=== PATIENT | male | born 1930 | race Caucasian/White ===

== ENCOUNTER → 2017-04-30 | Outpatient (CLI) | payer OTHER, MEDICARE | LOC: GIMAGING 14:23 | PROVIDERS: ATTEND Family Medicine | DX: K59.00 Constipation, unspecified (principal); N20.0 Calculus of kidney; Z96.642 Presence of left artificial hip joint | CPT/HCPCS: 74000-PO ==

== ENCOUNTER 2017-05-03 11:38 | Inpatient (IN) | payer OTHER, MEDICARE ==
--- NOTE | 2017-05-03 13:09 | EDPHY ---
H & P Time Seen by Provider: 05/03/17 12:23 HPI/ROS: Chief complaint. Blood in urine HPI. Patient is an 87-year-old male with indwelling catheter that has been present for 3 years. It is changed monthly. This morning however he noticed that there was some blood in the catheter tubing. He has no abdominal pain. No fever. No nausea vomiting or diarrhea. He notes that the catheter otherwise seems to be working normally but just present with some blood. No other complaints ROS Constitutional. no fever/chills, no weakness Eyes. no problems with vision ENT. no sore throat, no nasal drainage Cardiovascular. no chest pain Respiratory. no shortness of breath, no cough Abdominal. no abdominal pain, no nausea/vomiting, no diarrhea . Chronic Soares catheter with blood in the tubing this morning MS. no calf pain/swelling, no neck/back pain, no joint pain Skin. no rash Lymph. no swollen glands Neuro. no headache, no dizziness, no difficulty walking or with speech Past Medical/Surgical History: Past medical history hypertension, prostate cancer, suprapubic catheter, hip replacement Social History: Single, nonsmoker, no alcohol Smoking Status: Never smoked Physical Exam: General Appearance: Alert pleasant well-developed male mild distress vital signs are stable Eyes: Pupils equal and round no pallor or injection. ENT, Mouth: Mucous membranes are moist. Respiratory: There are no retractions, lungs are clear to auscultation. Cardiovascular: Regular rate and rhythm. Gastrointestinal: Abdomen is soft and nontender, no masses, bowel sounds normal. Suprapubic catheter in place. There is some cloudy urine that is slightly blood tinged in the catheter tubing Neurological: Awake and alert, sensory and motor exams grossly normal. Skin: Warm and dry, no rashes. Musculoskeletal: Neck is supple nontender. Extremities symmetrical, full range of motion. Psychiatric: Patient is oriented X 3, there is no agitation. Constitutional: Initial Vital Signs Temperature (C) 37 C 05/03/17 11:52 Heart Rate 85 05/03/17 11:52 Respiratory Rate 16 05/03/17 11:52 Blood Pressure 140/74 H 05/03/17 11:52 O2 Sat (%) 94 05/03/17 11:52 O2 Delivery Mode Room Air Allergies/Adverse Reactions: No Known Allergies Allergy (Verified 05/22/12 12:54) Home Medications: Medication Instructions Recorded Cholecalciferol Vit D3 [Vitamin D3 1,000 units PO DAILY 05/23/16 (*)] Lisinopril [Zestril 40 mg (*)] 40 mg PO DAILY 05/23/16 oxyCODONE HCL [Roxicodone] 15 mg PO Q8 05/23/16 Acetaminophen [Tylenol 325mg (*)] 650 mg PO Q4HRS PRN #0 tab 05/27/16 Cephalexin [Keflex (*)] 250 mg PO BID #8 cap 05/27/16 Bicalutamide 05/03/17 Medical Decision Making Procedures: Catheter is irrigated--any clots are removed. The catheter is flowing however appears to be pure blood. Apparently there was some which blood in the urine sample that they were unable to perform urinalysis but were able to perform microscopic analysis ED Course/Re-evaluation: Urinalysis shows white blood cells as well as RBCs. It is sent For culture and sensitivity. [id number] mg orally in the department Re-evaluation 14 50--patient has no pain however catheter now appears that it may not be running completely and urine in the bag is blood appearing Patient and I discussed treatment plan including recommendation for admission and further evaluation. He expresses understanding and agreement Urology consult is called and I discussed patient's condition with Dr. Del Valle IV normal saline. Antibiotics were held at this point pending culture as the patient has no systemic symptoms for UTI I consulted and discussed the case with Dr. heck, hospitalist, who will see the patient in the emergency department Differential Diagnosis: Hematuria with clots that are interfering with drainage of the suprapubic catheter. The etiology of the hematuria is not clear but includes infection as well as tumor. Patient needs cystoscopy and Urology consult to help with further evaluation and care - Data Points Laboratory Results: 05/03/17 14:10 Urine Color RED Urine Appearance TURBID Urine pH TNP Ur Specific [place] REJ Urine Protein TNP Urine Ketones TNP Urine Blood TNP Urine Nitrate TNP Urine Bilirubin TNP Urine Urobilinogen TNP Ur Leukocyte Esterase TNP Urine RBC >182 /hpf H /hpf (0-3) Urine WBC 25-50 /hpf H /hpf (0-3) Ur Epithelial Cells NONE SEEN /lpf /lpf (NONE-1+) Urine Bacteria 1+ /hpf H /hpf (NONE SEEN) Urine Glucose TNP Departure - Departure Disposition: [facility] Acute Clinical Impression: Hematuria Qualifiers: Hematuria type: gross Qualified Code(s): R31.0 - Gross hematuria Condition: Fair Referrals: Tea Carrillo MD [Primary Care Provider] - As per Instructions
[2017-05-03 14:35] LABS: COLOR RED
[2017-05-03 14:41] LABS: BACTERIA 1+ /hpf (NONE SEEN); RBC,URINE >182 /hpf (0-3); WBC,URINE 25-50 /hpf (0-3)
[2017-05-03] MEDS ORDERED: CEPHALEXIN 500MG PREPACK#4 BTL TAKEHOME ONE (14:46)
[2017-05-03 15:36] LABS: % IMMATURE GRANULYOCYTES 0.2 % (0.0-1.1); ABSOLUTE IMMATURE GRANULOCYTES 0.02 10^3/uL (0.00-0.10); ADD DIFF? NO; ADD MORPH? NO; ADD SCAN? NO; ATYPICAL LYMPHOCYTE FLAG 0 (0-99); FRAGMENT RBC FLAG 0 (0-99); HEMATOCRIT 32.5 % (40.0-51.0); HEMOGLOBIN 10.3 g/dL (13.7-17.5); LEFT SHIFT FLG 0 (0-99); LIPEMIA HEMOLYSIS FLAG 80 (0-99); MEAN CELL HEMOGLOBIN 31.3 pg (27.9-34.1); MEAN CELL HEMOGLOBIN CONCENTR. 31.7 g/dL (32.4-36.7); MEAN CELL VOLUME 98.8 fL (81.5-99.8); MEAN PLATELET VOLUME 9.3 fL (8.7-11.7); PLATELET CLUMPS FLAG 0 (0-99); PLATELET COUNT 188 10^3/uL (150-400); RED BLOOD CELL COUNT 3.29 10^6/uL (4.40-6.38); RED CELL DISTRIBUTION WIDTH 15.3 % (11.5-15.2)
[2017-05-03 15:49] LABS: INR 1.06 (0.83-1.16); PROTIME(PATIENT) 13.7 SEC (12.0-15.0)
[2017-05-03] MEDS ORDERED: ONDANSETRON 4 MG/2 ML VIAL IVP PRN (15:49)
[2017-05-03] MEDS ORDERED: ACETAMINOPHEN 325 MG TAB PO PRN (15:49)
[2017-05-03] MEDS ORDERED: ONDANSETRON DISINTEGRATING 4 MG TAB PO PRN (15:49)
[2017-05-03 15:50] LABS: APTT 30.5 SEC (23.0-38.0)
--- NOTE | 2017-05-03 15:55 | ASMTCMCOM ---
CM Note CM Note Notes: Patient admitted for hematuria and further urology workup and consult. Patient has had a suprapubic catheter for 3 years and this morning there was blood in the catheter tubing. Patient states his catheter gets changed monthly. Patient has a history of prostate cancer. Patient lives with his Julia and has used [facility] in the past. Armin'ts PCP is Dr. Tea Carrillo. Exact DC needs unknown at this time, CM to follow. Date Signed: 05/03/2017 03:54 PM Electronically Signed By:Zainab Stack RN
[2017-05-03 16:04] LABS: ANION GAP 15 mEq/L (8-16); CALCIUM 9.1 mg/dL (8.5-10.4); CARBON DIOXIDE 24 mEq/l (22-31); CHLORIDE 101 mEq/L (97-110); CREATININE 2.4 mg/dL (0.7-1.3); GLOMERULAR FILTRATION RATE 26; GLUCOSE 133 mg/dL (70-100); POTASSIUM 4.9 mEq/L (3.5-5.2); SODIUM 140 mEq/L (134-144)
--- NOTE | 2017-05-03 17:02 | GHP ---
[f rep st] HISTORY AND PHYSICAL DATE OF ADMISSION: 05/03/2017 CHIEF COMPLAINT: Hematuria. HISTORY OF PRESENT ILLNESS: The patient is an 87-year-old male with a history of prostate cancer, who is status post prostatectomy, and has an indwelling suprapubic catheter placed over 2 years ago, presents to the Emergency Department with dimitry blood draining from his catheter. He denies any fevers or chills. He does complain of some suprapubic discomfort. This has been somewhat chronic, and he takes oxycodone 5 mg 4 times a day for pain control. He otherwise has no chest pain, shortness of breath, nausea, or vomiting. He is here with his . They first noticed the hematuria last night. Today, he had dimitry blood in his catheter bag and was brought to the Emergency Department. In the ER, he underwent irrigation of the bladder, and multiple clots were removed. He is admitted to the hospital for further management. He is followed by Dr. Harman Hoffman, Urology. PAST MEDICAL HISTORY: 1. Prostate cancer, status post prostatectomy. 2. Presence of a suprapubic catheter. 3. Chronic kidney disease with baseline creatinine 1.7-2.2. 4. Hypertension. 5. History of pulmonary embolism in a postoperative state. 6. Essential tremor. 7. Chronic pain with chronic continuous opioid dependence. 8. History of knee replacement. 9. Total left hip replacement in 2011. 10. Cataract surgery. 11. Achilles tendon surgery. 12. Hernia surgery. 13. Vasectomy. MEDICATIONS: Please see [employer] for complete updated outpatient medication list. ALLERGIES: No known drug allergies. SOCIAL HISTORY: The patient lives at home independently with his . He uses a walker to ambulate. He denies a history of tobacco, alcohol or drug use. His is present at the bedside. FAMILY HISTORY: Reviewed and not pertinent. REVIEW OF SYSTEMS: A 10-point review of systems was performed and is negative status or as per HPI. OBJECTIVE: VITAL SIGNS: Temperature is 37 degrees, blood pressure 149/80, heart rate 74, respiratory rate 16, he is 93% on room air. GENERAL: The patient is awake, alert, and oriented, no acute distress HEENT: Head is atraumatic, normocephalic. Pupils equal, round, and reactive to light. Extraocular motions intact. Oropharynx clear. Mucous membranes are moist. NECK: Supple. There is no JVD. HEART: Regular rate and rhythm without murmur. LUNGS: Clear to auscultation bilaterally. ABDOMEN: Soft, nondistended. : He has mild suprapubic tenderness to palpation. His suprapubic catheter site is without drainage. There is dimitry hematuria in his catheter tubing and bag. EXTREMITIES: Without cyanosis, clubbing, or edema. NEUROLOGIC: Grossly nonfocal. LABORATORY DATA: CBC shows a normal white blood cell count, hemoglobin 10.3 which is stable from previous labs. Basic metabolic panel shows normal electrolytes, BUN 45, creatinine 2.4, glucose 133. Urinalysis has greater than 182 red cells, 25-50 white cells, 1+ bacteria on microscopy. Urine culture is pending. ASSESSMENT AND PLAN: The patient is an 87-year-old male with a history of prostate cancer, status post prostatectomy, and presence of a suprapubic catheter, who is admitted to the hospital with dimitry hematuria. 1. Hematuria. This is new onset. He is admitted to medical surgical unit. Continuous bladder irrigation is planned. I consulted Dr. Del Valle from Urology who will see the patient and consider cystoscopy. Check renal ultrasound. He may have a UTI. I reviewed his prior culture data, which have grown E. coli and Pseudomonas sensitive to cefepime. I will treat him with cefepime for now while we await urine culture results. There is no evidence of sepsis. He is afebrile. Will await further recommendations from Urology. Will also trend his hemoglobin q.6 hours and transfuse if indicated. 2. Acute kidney injury in the setting of chronic kidney disease. His baseline creatinine is 1.7-2.2. His creatinine on arrival is slightly elevated at 2.4. I will gently hydrate him overnight with normal saline, renally dose his medications, and avoid nephrotoxic agents. As above, renal ultrasound is ordered. 3. History of prostate cancer, status post suprapubic catheter. He is followed by Dr. Harman Hoffman, urologist. We will continue his bicalutamide. 4. History of hypertension. His blood pressures are just mildly elevated. We will continue to monitor these. He is not currently on any antihypertensive. 5. Deep vein thrombosis prophylaxis. We will defer pharmacologic prophylaxis given his gross hematuria. We will place SCDs for now. 6. Disposition. The patient is admitted to inpatient status. I suspect he will require greater than 48 hours hospitalization for ongoing management of his hematuria and further urologic workup. PT, OT evaluations are requested. /[id number]/MODL MTDD
[2017-05-03] MEDS: CEFEPIME HCL 1 GM in D5W 50 ML IV SCH (18:30)
[2017-05-03] MEDS: NS 1,000 ML IV SCH (18:31)
[2017-05-03 18:52] LABS: HEMATOCRIT 30.9 % (40.0-51.0); HEMOGLOBIN 9.9 g/dL (13.7-17.5)
[2017-05-04] MEDS: oxyCODONE IR 5 MG TAB PO PRN ×4 (00:17→18:15)
[2017-05-04 05:10] LABS: HEMATOCRIT 27.8 % (40.0-51.0); HEMOGLOBIN 9.2 g/dL (13.7-17.5)
[2017-05-04 05:25] LABS: ANION GAP 12 mEq/L (8-16); CALCIUM 8.7 mg/dL (8.5-10.4); CARBON DIOXIDE 23 mEq/l (22-31); CHLORIDE 106 mEq/L (97-110); CREATININE 2.4 mg/dL (0.7-1.3); GLOMERULAR FILTRATION RATE 26; GLUCOSE 101 mg/dL (70-100); POTASSIUM 4.8 mEq/L (3.5-5.2); SODIUM 141 mEq/L (134-144)
[2017-05-04] MEDS: CEFEPIME HCL 1 GM in D5W 50 ML IV SCH (09:12)
[2017-05-04] MEDS: NS 1,000 ML IV SCH ×2 (09:14→19:55)
--- NOTE | 2017-05-04 10:47 | HOSPPROG ---
Hospitalist Progress Note Assessment/Plan: patient is an 87-year-old male with a history of prostate cancer. He is status post a prostatectomy and has an indwelling suprapubic catheter in place for over 2 years ago. He presented the emergency department dimitry blood draining from his catheter. Today is my 1st encounter with the patient. Chart reviewed. * Gross hematuria urology to see and consider a cystoscopy he is getting continue bladder irrigation with clear urine noted * acute kidney injury in the setting of chronic kidney disease creatinine is 2.4, his baseline is around 1.7-2.2 renal ultrasound shows prominent bilateral hydronephrosis this is likely causing his acute kidney injury *anemia will follow * possible urinary tract infection started on cefepime * history of prostate cancer status post suprapubic catheter on bicalutamide * hypertension * DVT prophylaxis. This is being held due to gross hematuria * plan. Call and update his family. Patient is anxious to go home but I am concerned about his elevated creatinine and bilateral hydronephrosis. Will await further input from Urology Subjective: Maurilio has no complaints/wants to go home. Objective: Vital Signs Temp Pulse Resp BP Pulse Ox 36.4 C 66 17 138/74 H 93 05/04/17 08:00 05/04/17 08:00 05/04/17 08:00 05/04/17 08:00 05/04/17 08:00 Laboratory Results 05/04/17 05:00 05/04/17 05:00 05/03/17 05/04/17 05/05/17 05:59 05:59 05:59 Intake Total 911 Output Total 680 1100 Balance 231 -1100 PT 13.7 SEC (12.0-15.0) 05/03/17 15:27 INR 1.06 (0.83-1.16) 05/03/17 15:27 - Physical Exam Constitutional: no apparent distress, appears nourished, not in pain Eyes: PERRL Ears, Nose, Mouth, Throat: hard of hearing Cardiovascular: regular rate and rhythym Respiratory: no respiratory distress Skin: warm Neurologic: AAOx3 Psychiatric: interacting appropriately ICD10 Worksheet Patient Problems: Problems Problem Status Onset Hematuria Acute Total replacement of hip Active Hip dislocation, left Acute Renal insufficiency Acute UTI (urinary tract infection) Acute
[2017-05-04] MEDS: BICALUTAMIDE 50 MG TAB PO SCH (12:11)
[2017-05-04 12:28] LABS: HEMOGLOBIN 9.5 g/dL (13.7-17.5)
--- NOTE | 2017-05-04 13:30 | GCON ---
[f rep st] CONSULTATION DATE OF CONSULTATION: 05/04/2017 CHIEF COMPLAINT: Hematuria and renal insufficiency. Creatinine is currently 2.4. His baseline 2 ye ars ago was 2.0. HISTORY OF PRESENT ILLNESS: An 87-year-old male with a history of prostate cancer, who is status pos t prostatectomy and recurrence. He is failing Casodex currently, indwelling suprapubic catheter was placed over 2 years ago, is changed monthly. He presented on the to the emergency room with fra nk blood draining from his catheter. Over the last 18 hours, his catheter is cleared very nicely on continuous bladder irrigation and with antibiotics, as he has had significant UTIs in the past includ ing E coli and Pseudomonas sensitive to the cefepime. He is tolerating cefepime well currently. The hematuria was rapid onset and this has not happened to him before. The ER irrigated the bladder and multiple clots were removed, and he was admitted for further management. I did speak with Dr. Hoffman about his plan. Dr. Hoffman agrees and will follow the patient. PAST MEDICAL HISTORY: Prostate cancer status post prostatectomy presence of suprapubic catheter, chr onic kidney disease with baseline creatinine 1.7-2.4, hypertension, history of pulmonary embolism and postop state, essential tremor, chronic pain, knee replacement, left hip replacement, cataract surge ry, Achilles tendon surgery, hernia surgery, vasectomy. MEDICATIONS: See the medication record for specifics but he is on no chronic coagulants at home. ALLERGIES: No known drug allergies. SOCIAL HISTORY: He lives at home independently with his . His is power of burrito maker. He us es a walker to ambulate. Denies tobacco, alcohol or drug use. FAMILY HISTORY: Not pertinent and reviewed. REVIEW OF SYSTEMS: A 10-point review of systems was performed and the patient is negative except for the HPI. LAB DATA: His creatinine is 2.4 the rest of his BMP is normal. His CBC is reasonable. It was 10.3 hemoglobin on admission, it is now 9.5, which is likely due to the hydration and I am unconcerned abo ut current bleeding as his urine is completely clear on CBI. PHYSICAL EXAMINATION: VITAL SIGNS: Temperature is afebrile, blood pressures are 130s/70s-80s. Hear t rate is 70 today. Oxygen saturations 92%-93% on room air. GENERAL: Resting comfortably. No acut e distress. HEENT: Normocephalic, atraumatic. NECK: Supple. No lymphadenopathy. Trachea is midl ine. CHEST: No retractions or pursed lip breathing. No cyanosis. ABDOMEN: Soft, nontender, nondi stended. No masses. Suprapubic tube site is clean. Mild erythema which is normal. SP tube is drai amparo clear urine with CBI on low rate. MUSCULOSKELETAL: Moving all 4 extremities well. GENITOURINA RY: Genitals are normal. Prostate exam is deferred. PULSES: +1 pulses bilaterally in lower extrem ities. NEUROLOGIC: Cranial nerves 2-12 grossly intact. PSYCHIATRIC: Normal mood and affect. IMAGING: Renal ultrasound noted moderate hydronephrosis bilaterally, which is likely chronic and lik harper due to the recurrence of his prostate cancer. However I do not have a good diagnosis for the cau se of the hydronephrosis. ASSESSMENT/PLAN: 1. Discussed with Dr. Hoffman. He agrees with my plan of percutaneous nephrostomy tubes bilaterally a nd he will follow the patient from here. 2. I spoke with the daughter and the about the situation and after extensive discussion, they a gree to undergo percutaneous nephrostomy but they will be speaking with the patient about this and th e need for this procedure. 3. N.p.o. 4. Percutaneous nephrostomy tubes to be placed tomorrow by Interventional Radiology and this was ord ered. 5. We will speak to the Internal Medicine service here regarding the plan as well and Dr. Hoffman is t o assume his care from here. /[id number]/MOD
[2017-05-05] MEDS: oxyCODONE IR 5 MG TAB PO PRN (05:26)
[2017-05-05 05:32] LABS: % IMMATURE GRANULYOCYTES 0.5 % (0.0-1.1); ABSOLUTE IMMATURE GRANULOCYTES 0.03 10^3/uL (0.00-0.10); ADD DIFF? NO; ADD MORPH? NO; ADD SCAN? NO; ATYPICAL LYMPHOCYTE FLAG 20 (0-99); FRAGMENT RBC FLAG 20 (0-99); HEMATOCRIT 27.7 % (40.0-51.0); LEFT SHIFT FLG 10 (0-99); LIPEMIA HEMOLYSIS FLAG 80 (0-99); MEAN CELL HEMOGLOBIN 31.7 pg (27.9-34.1); MEAN CELL HEMOGLOBIN CONCENTR. 32.5 g/dL (32.4-36.7); MEAN CELL VOLUME 97.5 fL (81.5-99.8); MEAN PLATELET VOLUME 8.9 fL (8.7-11.7); PLATELET CLUMPS FLAG 0 (0-99); PLATELET COUNT 187 10^3/uL (150-400); RED BLOOD CELL COUNT 2.84 10^6/uL (4.40-6.38); RED CELL DISTRIBUTION WIDTH 15.2 % (11.5-15.2)
[2017-05-05 05:42] LABS: INR 1.17 (0.83-1.16); PROTIME(PATIENT) 14.9 SEC (12.0-15.0)
[2017-05-05 05:43] LABS: APTT 33.1 SEC (23.0-38.0)
[2017-05-05 05:44] LABS: ANION GAP 8 mEq/L (8-16); CALCIUM 8.6 mg/dL (8.5-10.4); CARBON DIOXIDE 22 mEq/l (22-31); CHLORIDE 109 mEq/L (97-110); CREATININE 2.3 mg/dL (0.7-1.3); GLOMERULAR FILTRATION RATE 27; GLUCOSE 99 mg/dL (70-100); POTASSIUM 4.9 mEq/L (3.5-5.2); SODIUM 139 mEq/L (134-144)
[2017-05-05] MEDS: NS 1,000 ML IV SCH (08:47)
[2017-05-05] MEDS: CEFEPIME HCL 1 GM in D5W 50 ML IV SCH (09:59)
--- NOTE | 2017-05-05 10:52 | HOSPPROG ---
Hospitalist Progress Note Assessment/Plan: patient is an 87-year-old male with a history of prostate cancer. He is status post a prostatectomy and has an indwelling suprapubic catheter in place for over 2 years ago. He presented the emergency department dimitry blood draining from his catheter. Reviewed his care yesterday with Dr Del Valle. * Gross hematuria resolved he is getting continue bladder irrigation with clear urine noted Dr Hoffman to see today * acute kidney injury in the setting of chronic kidney disease creatinine is 2.3, his baseline is around 1.7-2.2 renal ultrasound shows prominent bilateral hydronephrosis this is likely causing his acute kidney injury *bilateral hydronephrosis getting bilateral nephrostomy tube placement today *pruritus back area/ no rash will add topical Benadryl cream *anemia will follow * possible urinary tract infection started on cefepime * history of prostate cancer status post suprapubic catheter on bicalutamide * hypertension bp 139/75 * DVT prophylaxis. This is being held due to gross hematuria * plan. NPO for now.to get nephrostomy tubes today Subjective: Maurilio has no complaints/concerned about getting nephrostomy tubes placed. Objective: Vital Signs Temp Pulse Resp BP Pulse Ox 36.6 C 57 L 18 139/75 H 93 05/05/17 07:40 05/05/17 07:40 05/05/17 07:40 05/05/17 07:40 05/05/17 07:40 Laboratory Results 05/05/17 05:24 05/05/17 05:24 05/04/17 05/05/17 05/06/17 05:59 05:59 05:59 Intake Total 911 1092 Output Total 680 3900 Balance 231 -2808 PT 14.9 SEC (12.0-15.0) 05/05/17 05:24 INR 1.17 (0.83-1.16) H 05/05/17 05:24 - Physical Exam Constitutional: not in pain, chronically ill appearing Eyes: PERRL Ears, Nose, Mouth, Throat: hearing normal Cardiovascular: regular rate and rhythym Respiratory: no respiratory distress Skin: warm, other (redness along the left lower back area/ had been scratching skin/no rash noted) Musculoskeletal: full muscle strength Neurologic: AAOx3 Psychiatric: interacting appropriately ICD10 Worksheet Patient Problems: Problems Problem Status Onset Hematuria Acute Total replacement of hip Active Hip dislocation, left Acute Renal insufficiency Acute UTI (urinary tract infection) Acute
--- NOTE | 2017-05-05 11:40 | SOAPPROG ---
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 Based on the location of the obstruction, he may benefit from a CT pelvis to look for pelvic adenopathy related to his prostate cancer. I suspect that he may need to have Oncology evaluation for discussions regarding treatment of his prostate cancer. Subjective: Pt denies having any pain, fevers today. Objective: Vital Signs Temp Pulse Resp BP Pulse Ox 36.3 C 64 18 144/87 H 94 05/05/17 11:29 05/05/17 11:29 05/05/17 11:29 05/05/17 11:29 05/05/17 11:29 Laboratory Results 05/05/17 05:24 05/05/17 05:24 05/04/17 05/05/17 05/06/17 05:59 05:59 05:59 Intake Total 911 1092 Output Total 680 3900 Balance 231 -2808 PT 14.9 SEC (12.0-15.0) 05/05/17 05:24 INR 1.17 (0.83-1.16) H 05/05/17 05:24 Physical Exam - Physical Exam General Appearance: alert, no apparent distress Abdomen: normal bowel sounds, non-tender, soft Male Genitalia: other (Soares draining clear urine) ICD10 Worksheet Patient Problems: Problems Problem Status Onset Hematuria Acute Total replacement of hip Active Hip dislocation, left Acute Renal insufficiency Acute UTI (urinary tract infection) Acute
[2017-05-05] MEDS: BICALUTAMIDE 50 MG TAB PO SCH (12:44)
[2017-05-05] MEDS ORDERED: LIDOCAINE 1% 300 MG/30 ML SDV ONE (13:40)
[2017-05-05] MEDS ORDERED: IOPAMIDOL (ISOVUE-300) 100 ML BTL ONE (13:40)
[2017-05-05] MEDS ORDERED: FLUMAZENIL 0.5 MG/5 ML MDV IVP ONE (13:53)
[2017-05-05] MEDS ORDERED: MIDAZOLAM 2 MG/2 ML VIAL ONE (13:53)
[2017-05-05] MEDS ORDERED: fentaNYL 100 MCG/2 ML INJ ONE (13:53)
[2017-05-05] MEDS ORDERED: NALOXONE HCL 0.4 MG/ML INJ ONE (13:53)
[2017-05-05] MEDS ORDERED: DIPHENHYDRAMINE CREAM TP PRN (13:56)
--- NOTE | 2017-05-05 15:05 | POSTOPPROG ---
Post Op Note Date of Operation: 05/05/17 Surgeon: Frankie Arreola Anesthesia: IV Sedation Pre-op Diagnosis: Prostate CA Post-op Diagnosis: same Indication: Bilateral hydronephrosis, increasing serum creatinine Procedure: Bilateral percutaneous nephrostomies Findings: Tubes are in good positions. Cloudy urine on left. Inf/Abcess present in the surg proc area at time of surgery?: Yes Depth: Organ Space EBL: Minimal Complications: 0 Drains: Nephrostomy (Bilateral 10 F nephrostomy tubes) Specimen(s): 10 ml cloudy urine from left nephrostomy
[2017-05-06] MEDS: oxyCODONE IR 5 MG TAB PO PRN ×3 (03:04→22:49)
[2017-05-06] MEDS: CEFEPIME HCL 1 GM in D5W 50 ML IV SCH (08:42)
--- NOTE | 2017-05-06 10:15 | HOSPPROG ---
Hospitalist Progress Note Assessment/Plan: patient is an 87-year-old male with a history of prostate cancer. He is status post a prostatectomy and has an indwelling suprapubic catheter in place for over 2 years ago. He presented the emergency department with dimitry blood draining from his catheter. * Gross hematuria resolved he is getting continue bladder irrigation with clear urine noted care per Dr Hoffman * acute kidney injury in the setting of chronic kidney disease creatinine is 2.3, his baseline is around 1.7-2.2 renal ultrasound shows prominent bilateral hydronephrosis this is likely causing his acute kidney injury *bilateral hydronephrosis s/p bilateral nephrotomy tube placement *pruritus back area/ no rash will add topical Benadryl cream *chronic pain on continuous opioid dependence home meds resumed *anemia will follow/ no sig drop * urinary tract infection cefepime urine cx shows pseudomonas awaiting sensitivities/ hopefully, can go home on Levaquin * history of prostate cancer status post prostatectomy w chronic suprapubic catheter on bicalutamide will ask oncology to get involved with his care * hypertension bp 146/75 * DVT prophylaxis. will initiate due to hx of PE in 2016 * plan. will ask oncology to see, start hepain tid sq, repeat labs in a.m. / will ask PT and OT to see Subjective: Maurilio wants to be left alone and sleep. Objective: Vital Signs Temp Pulse Resp BP Pulse Ox 36.5 C 60 20 146/75 H 95 05/06/17 07:54 05/06/17 07:54 05/06/17 07:54 05/06/17 07:54 05/06/17 07:54 Microbiology 05/05/17 15:00 Gram Stain - Final Other - Other Laboratory Results 05/05/17 05:24 05/05/17 05:24 05/05/17 05/06/17 05/07/17 05:59 05:59 05:59 Intake Total 1092 150 Output Total 3900 5950 1650 Balance -2808 -5800 -1650 PT 14.9 SEC (12.0-15.0) 05/05/17 05:24 INR 1.17 (0.83-1.16) H 05/05/17 05:24 - Physical Exam Constitutional: not in pain, chronically ill appearing Eyes: PERRL Ears, Nose, Mouth, Throat: hearing normal Respiratory: no respiratory distress Genitourinary: other ([address]) Skin: warm Neurologic: AAOx3 Psychiatric: interacting appropriately ICD10 Worksheet Patient Problems: Problems Problem Status Onset Total replacement of hip Active Hip dislocation, left Acute UTI (urinary tract infection) Acute Renal insufficiency Acute Hematuria Acute
[2017-05-06] MEDS: HEPARIN 5,000 UNIT/0.5 ML SYR SC SCH ×3 (12:41→21:46)
[2017-05-06] MEDS: BICALUTAMIDE 50 MG TAB PO SCH (12:41)
--- NOTE | 2017-05-06 13:45 | ASMTCMCOM ---
CM Note CM Note Notes: CM met w/ and daughter for dispo planning. Pt was asleep. PT/OT are recommending SNF. initially pt was adamant about discharging home but is now more agreeable to SNF. [facility]st choice is [facility] and [facility]nd [facility]. CM faxed over referral to both facilities. CM to follow. Date Signed: 05/06/2017 01:44 PM Electronically Signed By:BEE Newton
[2017-05-06] MEDS: NS 1,000 ML IV SCH (21:46)
--- NOTE | 2017-05-06 23:51 | GCON ---
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 HISTORY OF PRESENT ILLNESS: The patient is a very pleasant 87-year-old male, referred by Dr. Hoffman for further evaluation and treatment recommendations regarding metastatic castrate resistant prostate cancer. Dr. Hoffman started seeing the patient years ago for renal stones. He had a bladder outlet obstruction in the fall of 2012 and underwent a TURP, which identified a Luis Alberto 10 prostate cancer involving 90% of the prostate gland. At that time, his PSA was 96. Imaging at that time included a bone scan which was suspicious for a metastases in the left ischial tuberosity, and otherwise no obvious metastatic bone disease. Abdominal CT scan did not identify any pelvic adenopathy or liver metastasis. The patient was then started on Lupron and Casodex with a rapid drop in his PSA. He has been maintained on anti-androgen therapy since that time. The lowest PSA was in January of 2014 of 2.74. In the summer it was 7.8. On October of this year 16.9, and in February of this year 23.9. He was felt to clinically likely have progressive metastatic prostate cancer. He has had a suprapubic catheter ever since the TURP, with chronic renal insufficiency with baseline creatinines ranging from around 1.7 to 1.8. More recently, the patient was admitted after having episode of gross hematuria. He also noted some suprapubic discomfort. He denied any fevers or chills. The hematuria rapidly cleared with bladder irrigation. Renal ultrasound identified prominent bilateral hydronephrosis, and the patient had bilateral nephrostomy tubes placed. Also of note, urine culture is growing Pseudomonas. Currently, the patient is resting. He notes some discomfort at the nephrostomy sites. He is somewhat sleepy. PAST MEDICAL HISTORY: 1. Metastatic prostate cancer. 2. Chronic suprapubic catheter. 3. Chronic renal insufficiency. 4. Hypertension. 5. History of pulmonary emboli. 6. Opioid dependence due to chronic pain. PAST SURGICAL HISTORY: Knee replacement, hip replacement, cataract surgery, hernia, vasectomy, TURP. ALLERGIES: None known. SOCIAL HISTORY: The patient lives with his . He uses a walker. He denies any tobacco or alcohol use. FAMILY HISTORY: Noncontributory. REVIEW OF SYSTEMS: 10-point review of systems is negative other than HPI. PHYSICAL EXAM: GENERAL: He is a very elderly, somewhat sleepy male, who is lying comfortably in bed. VITAL SIGNS: Blood pressure 115/65, heart rate 59, O2 sat 94% on room air. HEENT: Pupils are equal, oropharynx is clear. NECK: Supple. HEART: Regular rate. LUNGS: Clear to auscultation. ABDOMEN: Soft, and nontender. ABDOMEN: Soft and nontender. He does have a suprapubic catheter. BACK: He has bilateral nephrostomies. LABORATORY DATA: White blood cell count 6.5, hematocrit 27.7, platelets 187. Creatinine 2.3. IMPRESSION: This is an 87-year-old male with castrate resistant metastatic prostate cancer. This was identified incidentally on a transurethral resection of prostate, and was found to be a Luis Alberto 10. Bone scan 4 years ago identified a single bony metastases, and CT scan at that time did not identify any pelvic adenopathy. The hematuria has resolved and presumably most likely related to the pseudomonal urinary tract infection. He does have a history of renal stones, but that seems less likely. I think he should have a pelvic CT at some point to try to better define the etiology of the new bilateral hydro. This could be due to progressive pelvic adenopathy. Hopefully, the stents can be internalized at some point. Will need to review treatment options once the patient is more clinically stable and we have a better sense of his performance status. With that said, treatment could be very challenging given the patient's comorbidities and his advanced age. We will continue to follow along with you. /[id number]/MODL MTDD
[2017-05-07] MEDS: HEPARIN 5,000 UNIT/0.5 ML SYR SC SCH ×3 (05:11→22:48)
[2017-05-07 05:34] LABS: % IMMATURE GRANULYOCYTES 0.4 % (0.0-1.1); ABSOLUTE IMMATURE GRANULOCYTES 0.02 10^3/uL (0.00-0.10); ADD DIFF? NO; ADD MORPH? NO; ADD SCAN? NO; ATYPICAL LYMPHOCYTE FLAG 20 (0-99); FRAGMENT RBC FLAG 0 (0-99); HEMATOCRIT 27.1 % (40.0-51.0); HEMOGLOBIN 8.8 g/dL (13.7-17.5); LEFT SHIFT FLG 10 (0-99); LIPEMIA HEMOLYSIS FLAG 80 (0-99); MEAN CELL HEMOGLOBIN 31.3 pg (27.9-34.1); MEAN CELL HEMOGLOBIN CONCENTR. 32.5 g/dL (32.4-36.7); MEAN CELL VOLUME 96.4 fL (81.5-99.8); MEAN PLATELET VOLUME 9.7 fL (8.7-11.7); PLATELET CLUMPS FLAG 0 (0-99); PLATELET COUNT 145 10^3/uL (150-400); RED BLOOD CELL COUNT 2.81 10^6/uL (4.40-6.38)
[2017-05-07 05:53] LABS: CARBON DIOXIDE 21 mEq/l (22-31); CHLORIDE 109 mEq/L (97-110); POTASSIUM 4.2 mEq/L (3.5-5.2); SODIUM 141 mEq/L (134-144)
[2017-05-07 05:54] LABS: ANION GAP 11 mEq/L (8-16); CALCIUM 8.6 mg/dL (8.5-10.4); CREATININE 1.8 mg/dL (0.7-1.3); GLOMERULAR FILTRATION RATE 36; GLUCOSE 87 mg/dL (70-100)
--- NOTE | 2017-05-07 07:41 | SOAPPROG ---
SOAP Progress Note Assessment/Plan: Assessment: * Castrate resistant prostate cancer-rising PSA on Lupron/casodex * Bilateral hydronephrosis-s/p bilateral nephrostomies * Pseudomonal UTI/hematuria-hematuria resolved on cefipime * Acute on chronic renal insufficiency-creat down to baseline at 1.8. * Bladder outlet obstruction-chronic suprapubic catheter Plan: * CT scan on abdomen/pelvis. Will do with oral, but no IV contrast. Attempt to identify level of obstruction. * continue antibiotics. * Will need to determine if stents can be internalized at some point. 05/07/17 07:39 05/07/17 07:41 Subjective: much more awake this morning. Has several appropriate questions. No pain. Objective: Vital Signs Temp Pulse Resp BP Pulse Ox 36.7 C 50 L 20 117/54 L 93 05/07/17 07:19 05/07/17 07:19 05/07/17 07:19 05/07/17 07:19 05/07/17 07:19 Microbiology 05/05/17 15:00 Gram Stain - Final Other - Other Laboratory Results 05/07/17 05:09 05/07/17 05:09 05/06/17 05/07/17 05/08/17 05:59 05:59 05:59 Intake Total 150 2145 Output Total 5950 3175 Balance -5800 -1030 PT 14.9 SEC (12.0-15.0) 05/05/17 05:24 INR 1.17 (0.83-1.16) H 05/05/17 05:24 Physical Exam - Physical Exam General Appearance: alert, no apparent distress Respiratory: other (clear with some crackles at the right base.) Abdomen: non-tender, soft, other (suprapubic catheter draining small amount of clear urine) Back: Other (bilateral nephrostomy tubes draining urine) Extremities: No pedal edema Neuro/Psych: alert, normal mood/affect ICD10 Worksheet Patient Problems: Problems Problem Status Onset Hematuria Acute Total replacement of hip Active Hip dislocation, left Acute Renal insufficiency Acute UTI (urinary tract infection) Acute
[2017-05-07] MEDS: oxyCODONE IR 5 MG TAB PO PRN ×2 (09:40→22:48)
[2017-05-07] MEDS: CEFEPIME HCL 1 GM in D5W 50 ML IV SCH (09:40)
[2017-05-07] MEDS: BICALUTAMIDE 50 MG TAB PO SCH (12:11)
[2017-05-07] MEDS: NS 1,000 ML IV SCH (12:40)
--- NOTE | 2017-05-07 13:58 | HOSPPROG ---
Hospitalist Progress Note Assessment/Plan: patient is an 87-year-old male with a history of prostate cancer. He is status post a prostatectomy and has an indwelling suprapubic catheter in place for over 2 years ago. He presented the emergency department with dimitry blood draining from his catheter. * Gross hematuria resolved cont bladder irrigation dc yesterday urine clear, has a suprapubic catheter in place * acute kidney injury in the setting of chronic kidney disease creatinine is 1.8, back to his baseline renal ultrasound shows prominent bilateral hydronephrosis *KENNEDY chronic suprapubic catheter *bilateral hydronephrosis s/p bilateral nephrotomy tubes *pruritus back area/ no rash will add topical Benadryl cream *chronic pain on continuous opioid dependence home meds resumed *anemia will follow/ no sig drop * urinary tract infection/pseudomonas cefepime #5 * history of prostate cancer status post prostatectomy w chronic suprapubic catheter on bicalutamide/rising PSA CT scan of the abdomen and pelvis will be done with oral agent to identify level obstruction at some time will likely need internalized stents due to his bladder outlet obstruction * hypertension bp 117/54 * DVT prophylaxis. will initiate due to hx of PE in 2016 * plan. To get a CT scan of the abdomen and pelvis today, in addition to get bone scan to evaluate if he has any metastasis in other places. He will need to follow up with Urology. If he is stable can be discharged to [facility] tomorrow. Likely will not need any further antibiotics when discharged.appreciate Dr Bowers seeing Darrel. Subjective: Darrel has no complaints. Objective: Vital Signs Temp Pulse Resp BP Pulse Ox 36.7 C 60 20 117/54 L 97 05/07/17 07:19 05/07/17 09:15 05/07/17 07:19 05/07/17 07:19 05/07/17 09:15 Microbiology 05/05/17 15:00 Gram Stain - Final Other - Other Laboratory Results 05/07/17 05:09 05/07/17 05:09 05/06/17 05/07/17 05/08/17 05:59 05:59 05:59 Intake Total 150 2145 Output Total 5950 3175 Balance -5800 -1030 PT 14.9 SEC (12.0-15.0) 05/05/17 05:24 INR 1.17 (0.83-1.16) H 05/05/17 05:24 - Physical Exam Constitutional: chronically ill appearing, uncomfortable Eyes: PERRL Ears, Nose, Mouth, Throat: hearing normal Cardiovascular: regular rate and rhythym Respiratory: no respiratory distress, reduced air movement Gastrointestinal: normoactive bowel sounds Genitourinary: other (suprapubic catheter in place with yellow urine/ two nephrostomy tubes in place ) Skin: warm, No normal color (pale) Musculoskeletal: generalized weakness (using walker with ambulatioon) Neurologic: AAOx3 Psychiatric: interacting appropriately ICD10 Worksheet Patient Problems: Problems Problem Status Onset Hematuria Acute Total replacement of hip Active Hip dislocation, left Acute Renal insufficiency Acute UTI (urinary tract infection) Acute
--- NOTE | 2017-05-07 15:25 | ASMTCMCOM ---
CM Note CM Note Notes: Spoke w/Kenny at [facility], pt accepted, will likely dc tomorrow. Discussed w/ Gissell, will pay for transport to [facility], to help coordinate. Date Signed: 05/07/2017 03:24 PM Electronically Signed By:Ebony Schultz RN
[2017-05-08 05:29] LABS: % IMMATURE GRANULYOCYTES 0.4 % (0.0-1.1); ABSOLUTE IMMATURE GRANULOCYTES 0.02 10^3/uL (0.00-0.10); ADD DIFF? NO; ADD MORPH? NO; ADD SCAN? NO; ATYPICAL LYMPHOCYTE FLAG 40 (0-99); FRAGMENT RBC FLAG 0 (0-99); HEMATOCRIT 27.5 % (40.0-51.0); LEFT SHIFT FLG 0 (0-99); LIPEMIA HEMOLYSIS FLAG 80 (0-99); MEAN CELL HEMOGLOBIN 31.1 pg (27.9-34.1); MEAN CELL HEMOGLOBIN CONCENTR. 32.7 g/dL (32.4-36.7); MEAN CELL VOLUME 95.2 fL (81.5-99.8); MEAN PLATELET VOLUME 9.4 fL (8.7-11.7); PLATELET CLUMPS FLAG 0 (0-99); PLATELET COUNT 147 10^3/uL (150-400); RED BLOOD CELL COUNT 2.89 10^6/uL (4.40-6.38); RED CELL DISTRIBUTION WIDTH 14.9 % (11.5-15.2)
[2017-05-08 05:49] LABS: ALANINE AMINOTRANSFERASE 30 IU/L (21-72); ALBUMIN 2.9 g/dL (3.5-5.0); ALKALINE PHOSPHATASE 59 IU/L (38-126); ANION GAP 12 mEq/L (8-16); ASPARTATE AMINOTRANSFERASE 21 IU/L (17-59); BILIRUBIN,TOTAL 0.5 mg/dL (0.1-1.4); CALCIUM 8.8 mg/dL (8.5-10.4); CARBON DIOXIDE 22 mEq/l (22-31); CHLORIDE 108 mEq/L (97-110); CREATININE 1.6 mg/dL (0.7-1.3); GLOMERULAR FILTRATION RATE 41; GLUCOSE 88 mg/dL (70-100); POTASSIUM 3.9 mEq/L (3.5-5.2); SODIUM 142 mEq/L (134-144); TOTAL PROTEIN 6.3 g/dL (6.3-8.2)
[2017-05-08] MEDS: oxyCODONE IR 5 MG TAB PO PRN (05:54)
[2017-05-08] MEDS: HEPARIN 5,000 UNIT/0.5 ML SYR SC SCH ×3 (05:55→22:58)
[2017-05-08] MEDS: CEFEPIME HCL 1 GM in D5W 50 ML IV SCH (08:13)
[2017-05-08] MEDS: BICALUTAMIDE 50 MG TAB PO SCH (12:14)
[2017-05-08] MEDS ORDERED: oxyCODONE IR 5 MG TAB PO SCH ×2 (13:00→18:00)
[2017-05-08] MEDS: oxyCODONE IR 5 MG TAB PO SCH ×2 (13:47→18:04)
--- NOTE | 2017-05-08 14:10 | HOSPPROG ---
Hospitalist Progress Note Assessment/Plan: patient is an 87-year-old male with a history of prostate cancer. He is status post a prostatectomy and has an indwelling suprapubic catheter in place for over 2 years ago. He presented the emergency department with dimitry blood draining from his catheter. First encounter, chart reviewed. * Gross hematuria resolved cont bladder irrigation dc'd urine clear, has a suprapubic catheter in place and nephro tubes * acute kidney injury in the setting of chronic kidney disease creatinine is 1.6, back to his baseline *KENNEDY chronic suprapubic catheter *bilateral hydronephrosis s/p bilateral nephrotomy tubes *pruritus back area/ no rash topical Benadryl cream *chronic pain on continuous opioid dependence home meds as scheduled at home *anemia will follow/ no sig drop * urinary tract infection/pseudomonas cefepime #6 * history of prostate cancer status post prostatectomy w chronic suprapubic catheter on bicalutamide/rising PSA CT scan of the abdomen and pelvis shows thickening at some time will likely need internalized stents due to his bladder outlet obstruction may need to wait until infection is clear defer to Dr Hoffman for recs appreciate oncology consult bone scan done and reviewed * hypertension stable * DVT prophylaxis. will initiate due to hx of PE in 2016 * plan. He will need to follow up with Urology, Dr hoffman. If he is stable can be discharged to [facility] tomorrow. Likely will not need any further antibiotics when discharged. Subjective: Feeling tired today. Didn't sleep well last night. Some pain from tubes. Objective: Vital Signs Temp Pulse Resp BP Pulse Ox 36.3 C 64 20 116/63 90 L 05/08/17 11:32 05/08/17 11:32 05/08/17 11:32 05/08/17 11:32 05/08/17 11:32 Microbiology 05/05/17 15:00 Gram Stain - Final Other - Other Laboratory Results 05/08/17 05:02 05/08/17 05:02 05/07/17 05/08/17 05/09/17 05:59 05:59 05:59 Intake Total 2145 50 Output Total 3175 0685 475 Balance -1030 -2825 -475 PT 14.9 SEC (12.0-15.0) 05/05/17 05:24 INR 1.17 (0.83-1.16) H 05/05/17 05:24 - Physical Exam Constitutional: appears nourished, not in pain, chronically ill appearing Eyes: PERRL, anicteric sclera, EOMI Ears, Nose, Mouth, Throat: moist mucous membranes, hearing normal, ears appear normal Cardiovascular: No JVD, No tachycardia, No edema Respiratory: no respiratory distress, no rales or rhonchi, reduced air movement Gastrointestinal: No tenderness, No ascites, No guarding Genitourinary: other (nephrostomy tubes) Skin: warm, normal color, No erythema Musculoskeletal: normal joint ROM, no joint effusions, generalized weakness Neurologic: AAOx3 Psychiatric: interacting appropriately, not anxious, not encephalopathic, thought process linear ICD10 Worksheet Patient Problems: Problems Problem Status Onset Total replacement of hip Active Hip dislocation, left Acute UTI (urinary tract infection) Acute Renal insufficiency Acute Hematuria Acute
--- NOTE | 2017-05-08 18:13 | SOAPPROG ---
SOAP Progress Note Assessment/Plan: Assessment: * Castrate resistant prostate cancer-rising PSA on Lupron/casodex * Bilateral hydronephrosis-s/p bilateral nephrostomies. CT scan shows pelvic adenopathy, but no obvious explanation for bilateral hydro. * Pseudomonal UTI/hematuria-hematuria resolved on cefipime * Acute on chronic renal insufficiency-creat down to baseline. * Bladder outlet obstruction-chronic suprapubic catheter Plan: * continue antibiotics. * Will need to determine if stents can be internalized at some point. May need to wait until Pseudomonal UTI is treated. * Patient will likely need course of rehab. * I will plan on seeing patient in follow up at the office. can determine at that time what treatment options to consider. 05/07/17 07:39 05/07/17 07:41 05/08/17 18:10 Subjective: feeling much better, no pain Objective: Vital Signs Temp Pulse Resp BP Pulse Ox 36.9 C 66 20 107/53 L 92 05/08/17 15:25 05/08/17 15:25 05/08/17 15:25 05/08/17 15:25 05/08/17 15:25 Microbiology 05/05/17 15:00 Gram Stain - Final Other - Other Laboratory Results 05/08/17 05:02 05/08/17 05:02 05/07/17 05/08/17 05/09/17 05:59 05:59 05:59 Intake Total 2145 50 550 Output Total 3175 2875 875 Balance -1030 -2825 -325 PT 14.9 SEC (12.0-15.0) 05/05/17 05:24 INR 1.17 (0.83-1.16) H 05/05/17 05:24 Physical Exam - Physical Exam General Appearance: alert, no apparent distress Respiratory: lungs clear Abdomen: soft, other (suprapubic catheter) Back: Other (bilateral nephrostomies) Neuro/Psych: alert, normal mood/affect ICD10 Worksheet Patient Problems: Problems Problem Status Onset Hematuria Acute Total replacement of hip Active Hip dislocation, left Acute Renal insufficiency Acute UTI (urinary tract infection) Acute
[2017-05-09] MEDS ORDERED: oxyCODONE IR 5 MG TAB PO SCH
[2017-05-09] MEDS: HEPARIN 5,000 UNIT/0.5 ML SYR SC SCH (05:04)
[2017-05-09] MEDS: oxyCODONE IR 5 MG TAB PO SCH ×2 (05:05→11:06)
[2017-05-09 08:25] VITALS: BP 126/77
[2017-05-09] MEDS: CEFEPIME HCL 1 GM in D5W 50 ML IV SCH (09:51)
--- NOTE | 2017-05-09 10:25 | PDIAF ---
- Diagnosis Diagnosis: urinary obstruction Code Status: Full Code - Medication Management Discharge Medications: Medications to Continue on Transfer Cholecalciferol Vit D3 [Vitamin D3 (*)] 1,000 units PO DAILY 05/23/16 [Last Taken Unknown] Bicalutamide [Casodex (*)] 50 mg PO DAILY@12 05/03/17 [Last Taken 05/02/17] Acetaminophen [Tylenol 325mg (*)] 650 mg PO Q4HRS PRN tab 05/09/17 [Last Taken Unknown] Ciprofloxacin HCl 250 mg PO BID #20 tablet 05/09/17 [Last Taken Unknown] diphenhydrAMINE [Benadryl Cream] 1 radha TP QID PRN cream 05/09/17 [Last Taken Unknown] oxyCODONE IR [Oxycodone Ir (*)] 5 mg PO TID@0600,1200,1800 tab 05/09/17 [Last Taken Unknown] oxyCODONE IR [Oxycodone Ir (*)] 10 mg PO DAILY@0000 tab 05/09/17 [Last Taken Unknown] Discharge Medications: Refer to the Discharge Home Medication list for PRN reason. PICC Care - Routine: N/A - Orders Services needed: Registered Nurse, Physical Therapy, Occupational Therapy Diet Recommendation: no restrictions on diet - Follow Up Care Current Providers and Referrals: Tea Carrillo MD [Primary Care Provider] - As per Instructions Harman Hoffman MD [Medical Doctor] -
--- NOTE | 2017-05-09 11:04 | ASMTCMCOM ---
CM Note CM Note Notes: D/w HACK DRIVER, final orders faxed. Notified Kenny at , scrap picker and 1pm w/[facility] transport. RN to call report. Date Signed: 05/09/2017 11:03 AM Electronically Signed By:Ebony Schultz RN
[2017-05-09] MEDS: BICALUTAMIDE 50 MG TAB PO SCH (11:06)
[2017-05-09 11:29] VITALS: PULSE 66; RESP 20; TEMP 98.6; O2SAT 93
--- NOTE | 2017-05-09 19:22 | GDS ---
[f rep st] DISCHARGE SUMMARY DISCHARGE DIAGNOSES: 1. Pseudomonal urinary tract infection. 2. Bladder obstruction, requiring nephrostomy tube. 3. Gross hematuria. 4. Acute kidney injury. 5. Hydronephrosis. 6. Anemia. 7. History of prostate cancer. CONSULTATIONS: 1. Urology. 2. Oncology. PHYSICAL EXAM: GENERAL: The patient is alert. VITAL SIGNS: Afebrile at 37, pulse is 66, respirato ry rate is 20. Blood pressure is 126/77. He is saturating 93% on room air. I have seen and evaluat ed the patient on the day of discharge. HOSPITAL COURSE: The patient is an 87-year-old male who presented to the emergency room with complai nts of bloody urine. He was evaluated and diagnosed with: 1. Gross hematuria. During this hospitalization, he had a bladder irrigation. He does have a chron ic suprapubic catheter in place, and his urologist is Dr. Hoffman. His hematuria has resolved prior to disposition. His suprapubic catheter will require replacement in the outpatient setting. 2. Acute kidney injury. This has resolved. His creatinine has returned to baseline. 3. Bladder outlet obstruction. Again, he does have chronic suprapubic catheter in place. He has re quired bilateral nephrostomy tubes secondary to bilateral hydronephrosis during this hospitalization. These will remain in place and he will follow up with Dr. Hoffman in the outpatient setting for poten tial stent placement. 4. Pseudomonal urinary tract infection. He has been treated with cefepime during this hospitalizati on, and transitioned to oral antibiotics at the time of disposition. He is to continue these oral an tibiotics until he follows up with Dr. Hoffman in the outpatient setting. 5. History of prostate cancer. Oncology was consulted during this hospital course. No aggressive i nteraction has been made, and he will continue to follow with Oncology in the outpatient setting. 6. Anemia. This appears to be stable and is multifactorial with acute blood loss as well as chronic disease. 7. Hypertension. This is stable. DISPOSITION: The patient will be discharged to [facility] for rehabilitation and strengthening, as well as medical management. He will have bilateral nephrostomy tubes intact as well as the supra pubic catheter. Followup will be with Dr. Hoffman in 1 week, as well as the patient's primary care hannah menendez, Dr. Tea Carrillo next week. DISCHARGE MEDICATIONS: Please refer to EMR form. I have not adjusted the patient's previously presc ribed medications, to the best of my knowledge. However, I have prescribed ciprofloxacin 250 mg p.o. b.i.d. I spent greater than 35 minutes in the care, coordination, and management of this patient's dispositi on. /[id number]/MODL
== END 2017-05-09 13:15 | DRG 690 ==
LOC: EDUNIT# → F3E 16:23
PROVIDERS: ADMIT Hospitalist; ATTEND Internal Medicine
DX: N39.0 Urinary tract infection, site not specified (principal); B96.5 Pseudomonas (aeruginosa) (mallei) (pseudomallei) as the cause of diseases classified elsewhere; R31.0 Gross hematuria; N17.9 Acute kidney failure, unspecified; I12.9 Hypertensive chronic kidney disease with stage 1 through stage 4 chronic kidney disease, or unspecified chronic kidney disease; N18.9 Chronic kidney disease, unspecified; N13.30 Unspecified hydronephrosis; G89.29 Other chronic pain; F11.20 Opioid dependence, uncomplicated; D64.9 Anemia, unspecified; L29.9 Pruritus, unspecified; G25.0 Essential tremor; N32.0 Bladder-neck obstruction; Z85.46 Personal history of malignant neoplasm of prostate; Z93.51 Cutaneous-vesicostomy status; Z90.79 Acquired absence of other genital organ(s); Z86.711 Personal history of pulmonary embolism; Z96.659 Presence of unspecified artificial knee joint; Z96.642 Presence of left artificial hip joint
CPT/HCPCS: 97116-GP; 97162-GP; 97166-GO; 97530-GP; 97535-GO; A9503; C1729; C1769; G8978-GP-CJ; G8979-GP-CI; G8987-GO-CJ; G8988-GO-CI; J0692; J1644; J2250; J2310; J3010; Q9967

== ENCOUNTER 2017-11-02 15:43 | Emergency (ER) | payer OTHER, MEDICARE ==
--- NOTE | 2017-11-02 15:45 | EDPHY ---
HPI/HX/ROS/PE/MDM Narrative: CHIEF COMPLAINT: Left hip pain HPI: The patient is an 87 y/o male with a history of a left hip replacement, prostate cancer s/p prostatectomy, chronic kidney disease, arriving via EMS complaining of left hip pain, onset last night. He is currently on hospice care at [facility] and was given his opiate pain medications prior to EMS arrival. When EMS arrived, the patient had O2Sats of 69%. EMS placed him on 15L supplemental oxygen and he is now having O2Sats in the 80's. He was not on supplemental oxygen prior to EMS arrival. Prior medical records reviewed including history and physical on 05/03/2017. REVIEW OF SYSTEMS: Unable to obtain. PMH: Left hip replacement, prostate cancer s/p prostatectomy, chronic kidney disease, hypertension, PE, knee replacement, hernia surgery SOCIAL HISTORY: Lives at [facility], at bedside, retired PHYSICAL EXAM: General: Patient is alert, elderly. ENT: Abnormal eyelids with mild discharge. ENT inspection normal. Neck: Normal inspection. Full range of motion. Respiratory: No respiratory distress. Breath sounds normal bilaterally. Cardiovascular: Regular rate and rhythm. Strong peripheral pulses. Normal cap refill. Abdomen: Soares catheter in place with a leg bag. The abdomen is nontender to palpation. There are no peritoneal signs. There are normal bowel sounds. Back: Normal to inspection. No tenderness to palpation. Skin: Normal color. No rash. Warm and dry. Extremities: Tenderness to left hip, pelvis is stable. Unable to lift both legs. Neuro: Oriented x3. Normal motor function. Normal sensory function. Portions of this note were transcribed by an ED scribe. I personally performed the history, physical exam, and medical decision making; and confirm the accuracy of the information in the transcribed note. ED Course: 1542: Met EMS upon arrival. 1502: Pelvis CT ordered to further investigate x-ray findings. 1650: I reviewed patient's pelvis CT; radiologist reading still pending. 1720: Spoke with radiologist regarding patient's pelvis CT. There is a small non -displaced left femoral subtrochanteric line fracture near the prosthesis. 1724: Reassessed patient and discussed imaging findings. His is now at the bedside. 1737: Consulted with Dr. Dukes, orthopedic surgeon, regarding this patient. There is no operation needed for the fracture. He recommends admission for pain control or returning home. 1739: Reassessed patient and discussed Dr. Dukes's recommendation. The patient and his would like to return to hospice. I have advised the patient 's to increase the pain regimen when they return to the hospice nursing facility. I have also advised them to follow up with Dr. Dukes within the week. Return precautions provided; patient and his are comfortable with this plan. - Data Points Imaging Results: Imaging Impressions Chest X-Ray 11/02/17 15:49 Impression: Mild hypoventilatory features with some new medial left basilar atelectasis/infiltrate. Pelvis X-Ray 11/02/17 15:49 Impression: Status post prior remote left hip arthroplasty, with no acute osseous abnormality observed. At Dr. Carrillo's request, a CT scan of the pelvis has also been requested, and will be separately reported. Pelvis CT 11/02/17 16:02 Impression: 1. Interim development of a minimally displaced proximal lateral diaphyseal fracture along the left femoral subtrochanteric line in this patient with a left hip arthroplasty (which remains anatomically-aligned). 2. Interim increase in pelvic lymphadenopathy in this patient with a history of prostate cancer. 3. Distal ureteral dilatation, with no included imaging of the kidneys. Findings were discussed with Marcos Carrillo MD at 17:18, on 11/02/2017. Imaging: Discussed imaging studies w/ director of digital technology Radiologist, I viewed and interpreted images myself General Time Seen by Provider: 11/02/17 15:43 Initial Vital Signs: Initial Vital Signs Temperature (C) 36.6 C 11/02/17 15:47 Heart Rate 86 11/02/17 15:47 Respiratory Rate 32 H 11/02/17 15:47 Blood Pressure 111/81 H 11/02/17 15:47 O2 Sat (%) 100 11/02/17 15:47 O2 Delivery Mode Nasal Cannula O2 (L/minute) 4 Allergies/Adverse Reactions: No Known Allergies Allergy (Verified 05/22/12 12:54) Home Medications: Medication Instructions Recorded Cholecalciferol Vit D3 [Vitamin D3 1,000 units PO DAILY 05/23/16 (*)] Bicalutamide [Casodex (*)] 50 mg PO DAILY@12 05/03/17 Acetaminophen [Tylenol 325mg (*)] 650 mg PO Q4HRS PRN tab 05/09/17 Ciprofloxacin HCl 250 mg PO BID #20 tablet 05/09/17 diphenhydrAMINE [Benadryl Cream] 1 radha TP QID PRN cream 05/09/17 oxyCODONE IR [Oxycodone Ir (*)] 5 mg PO TID@0600,1200,1800 tab 05/09/17 oxyCODONE IR [Oxycodone Ir (*)] 10 mg PO DAILY@0000 tab 05/09/17 Departure - Departure Disposition: Home, Routine, Self-Care Clinical Impression: Closed left subtrochanteric femur fracture Qualifiers: Encounter type: initial encounter Fracture alignment: nondisplaced Qualified Code(s): S72.25XA - Nondisplaced subtrochanteric fracture of left femur, initial encounter for closed fracture Condition: Good Instructions: Hip Fracture (ED) Additional Instructions: Increase your pain regimen when you return to the nursing care facility. You can toe-touch weight bearing on your left leg as tolerated. Rest, ice, elevation. Follow up with an orthopedic surgeon within one week, you have been referred to Dr. Dukes. Return to the emergency department for worsening pain , swelling, numbness, weakness or other concerns. Referrals: Pedro Luis Dukes MD [Medical Doctor] - As per Instructions Report Scribed for: Marcos Carrillo Report Scribed by: Jaqueline Trivedi Date of Report: 11/02/17 Time of Report: 15:45
--- NOTE | 2017-11-02 18:11 | ASMTCMCOM ---
CM Note CM Note Notes: [facility] Pt's , Julia, and a friend, Charlette, at bedside. Pt is on hospice, has a history of prostate cancer and is unable to walk or stand. NEMT Stretcher transport arranged through [facility]. PCS form completed; original to be scanned into chart, copy provided to [facility]. Spoke with Jacqueline at [place] ([phone]) and notified of patient's return and stretcher transport. CM available for further assistance if needed. Date Signed: 11/02/2017 06:10 PM Electronically Signed By:Zainab Stack RN
--- NOTE | 2017-11-02 18:12 | ASMTLACE ---
HOMA Acuity / Level of Answers: No Care: Did the patient have an inpatient admission? Comorbidities - select Answers: History of falls all that apply Palliative care / End of life trajectory Other Notes: Prostate Cancer # of Emergency department Answers: 1-2 visits in the last 6 months Score: 7 Date Signed: 11/02/2017 06:12 PM Electronically Signed By:Zainab Stack RN
--- NOTE | 2017-11-02 18:15 | ASDISCHSUM ---
Discharge Information Plan Status:Assisted Living Medically Cleared to Leave: Discharge Date: CM D/C Disposition:Assisted Living ADT D/C Disposition:Home, Routine, Self-Care Projected Discharge Date: Transportation at D/C:ALS/BLS Discharge Delay Reason: Follow-Up Date: Discharge Slot: Final Diagnosis: Placement Information Patient Contact Information Contact Name:JULIA Relationship: Address:[address] City:[place] Alternate Phone: State/Zip Code:[place] [address] Email: Financial Information Financial Class:Medicare Primary Plan Desc:MEDICARE OUTPATIENT Primary Plan Number:[id number] Secondary Plan Desc:[employer]/M[employer] SUPPLEMENT Secondary Plan Number:[id number] Assessment Information [facility] CM Progress Note CM Note CM Note Notes: Requested to assist with transport back to [facility]. Pt's , Julia, and a friend, Charlette, at bedside. Pt is on hospice, has a history of prostate cancer and is unable to walk or stand. NEMT Stretcher transport arranged through [facility]. PCS form completed; original to be scanned into chart, copy provided to [facility]. Spoke with Jacqueline at [place] ([phone]) and notified of patient's return and stretcher transport. CM available for further assistance if needed. Date Signed: 11/02/2017 06:10 PM Electronically Signed By:Zainab Stack RN LACE LACE Acuity / Level of Answers: No Care: Did the patient have an inpatient admission? Comorbidities - select Answers: History of falls all that apply Palliative care / End of life trajectory Other Notes: Prostate Cancer # of Emergency department Answers: 1-2 visits in the last 6 months Score: 7 Date Signed: 11/02/2017 06:12 PM Electronically Signed By:Zainab Stack RN Intervention Information Intervention Type:Transportation Date of Service:11/02/2017 06:12 PM Patient Type:Emergency Room Staff Member:DEDE Stack [place] Hours:0.25 Discipline:Diesel Dinkey Operator Severity: Comment:NEMT stretcher transport via [facility] Intervention Type:Post Acute Communication Date of Service:11/02/2017 06:12 PM Patient Type:Emergency Room Staff Member:DEDE Stack [place] Hours:0.25 Discipline:Diesel Dinkey Operator Severity: Comment:Notified [place] facility of pt's nellie morel.
[2017-11-02 18:34] VITALS: BP 106/72; PULSE 102; RESP 16; TEMP 98.6; O2SAT 92
== END 2017-11-02 18:40 | disposition home or self-care (01) ==
LOC: EDUNIT#
DX: S72.25XA Nondisplaced subtrochanteric fracture of left femur, initial encounter for closed fracture (principal); I12.9 Hypertensive chronic kidney disease with stage 1 through stage 4 chronic kidney disease, or unspecified chronic kidney disease; N18.9 Chronic kidney disease, unspecified; Z85.46 Personal history of malignant neoplasm of prostate; W19.XXXA Unspecified fall, initial encounter